=== PATIENT | female | born 1935 | race Caucasian/White ===

== ENCOUNTER 2016-09-08 13:19 | Emergency (ER) | payer MEDICARE ==
[2016-09-08 15:44] LABS: RED BLOOD COUNT 4.54 M/UL (4.00-5.10)
[2017-01-26] MEDS ORDERED: LOPRESSOR 25 MG25 MG PO (10:48)
[2017-01-26] MEDS ORDERED: DILTIAZEM 24HR180 M1 PO (10:49)
[2017-01-26] MEDS ORDERED: COMBIVENT0.074 GM/I INH (10:49)
[2017-01-26] MEDS ORDERED: LASIX TAB 20 MG20 MG PO (10:50)
[2017-01-26] MEDS ORDERED: HYDRALAZINE HCL50 MG PO (10:51)
[2017-01-26] MEDS ORDERED: SINGULAIR10 MG PO (10:52)
[2017-01-26] MEDS ORDERED: ASPIR-LOW81 MG PO (10:53)
[2017-01-26] MEDS ORDERED: PANTOPRAZOLE SO40 MG PO (10:53)
[2017-01-26] MEDS ORDERED: VITAMIN D250000 UNIT PO (10:54)
[2017-01-26] MEDS ORDERED: VITAMIN B-122500 MCG SL (10:54)
[2017-01-26] MEDS ORDERED: KLOR-CON 1010 MEQ PO (10:55)
[2017-01-27] MEDS ORDERED: PREDNISONE 5 MG5 MG PO (14:23)
[2017-01-27] MEDS ORDERED: LISINOPRIL10 MG PO (21:43)
[2017-01-27] MEDS ORDERED: ATORVASTATIN CA40 MG PO (21:44)
[2017-01-27] MEDS ORDERED: ASPIR 8181 MG PO (21:45)
== END 2016-09-08 20:15 | disposition home or self-care (01) ==
LOC: ER1 13:19
PROVIDERS: Physician Assistant
DX: R42 Dizziness and giddiness (principal); I50.9 Heart failure, unspecified; N18.3 Chronic kidney disease, stage 3 (moderate); K59.00 Constipation, unspecified; Z88.2 Allergy status to sulfonamides; Z95.1 Presence of aortocoronary bypass graft; Z79.899 Other long term (current) drug therapy; Z88.8 Allergy status to other drugs, medicaments and biological substances
CPT/HCPCS: 36415; 71010; 80053; 81001; 82550; 82553; 83605; 83690; 83874; 83880; 84484; 85025; 87040; 87086; 93005; 99284

== ENCOUNTER 2016-09-30 21:15 | Emergency (ER) | payer MEDICARE ==
[2016-09-30 23:23] LABS: HEMOGLOBIN 12.1 gm/dl (12.3-15.3); RED BLOOD COUNT 4.24 M/UL (4.00-5.10); WHITE BLOOD COUNT 6.3 K/UL (4.5-11.0)
[2017-01-26] MEDS ORDERED: LOPRESSOR 25 MG25 MG PO (10:48)
[2017-01-26] MEDS ORDERED: COMBIVENT0.074 GM/I INH (10:49)
[2017-01-26] MEDS ORDERED: DILTIAZEM 24HR180 M1 PO (10:49)
[2017-01-26] MEDS ORDERED: LASIX TAB 20 MG20 MG PO (10:50)
[2017-01-26] MEDS ORDERED: HYDRALAZINE HCL50 MG PO (10:51)
[2017-01-26] MEDS ORDERED: SINGULAIR10 MG PO (10:52)
[2017-01-26] MEDS ORDERED: PANTOPRAZOLE SO40 MG PO (10:53)
[2017-01-26] MEDS ORDERED: ASPIR-LOW81 MG PO (10:53)
[2017-01-26] MEDS ORDERED: VITAMIN B-122500 MCG SL (10:54)
[2017-01-26] MEDS ORDERED: VITAMIN D250000 UNIT PO (10:54)
[2017-01-26] MEDS ORDERED: KLOR-CON 1010 MEQ PO (10:55)
[2017-01-27] MEDS ORDERED: PREDNISONE 5 MG5 MG PO (14:23)
[2017-01-27] MEDS ORDERED: LISINOPRIL10 MG PO (21:43)
[2017-01-27] MEDS ORDERED: ATORVASTATIN CA40 MG PO (21:44)
[2017-01-27] MEDS ORDERED: ASPIR 8181 MG PO (21:45)
== END 2016-10-01 00:05 | disposition home or self-care (01) ==
LOC: ER1 21:15
PROVIDERS: Preventive Medicine Occupational Medicine
DX: R33.9 Retention of urine, unspecified (principal); N18.9 Chronic kidney disease, unspecified; Z87.891 Personal history of nicotine dependence; Z88.1 Allergy status to other antibiotic agents; Z88.2 Allergy status to sulfonamides; Z88.5 Allergy status to narcotic agent; Z88.8 Allergy status to other drugs, medicaments and biological substances
CPT/HCPCS: 36415; 80048; 81001; 85025; 99283